=== PATIENT | male | born 1965 | race Caucasian/White ===

== ENCOUNTER 2018-03-16 06:21 | Inpatient (IN) ==
[2018-03-16] MEDS ORDERED: Albuterol 2.5 MG/3 ML NEBULIZER IH ONE (06:47)
[2018-03-16] MEDS ORDERED: CeFAZolin Syr 3,000MG/30 ML 3,000 MG/30 ML SYRINGE IVPB ONE (06:47)
[2018-03-16] MEDS ORDERED: Ringers Solution, Lactated 1,000 ML IVC SCH ×2 (07:00→11:45)
[2018-03-16] MEDS ORDERED: Lidocaine -MPF 4% 5 ML AMPUL ONE (07:56)
[2018-03-16] MEDS ORDERED: Ondansetron 4 MG/2 ML VIAL ONE (07:58)
[2018-03-16] MEDS ORDERED: Neostigmine Methylsulfate 3 MG/3 ML SYRINGE ONE (07:58)
[2018-03-16] MEDS ORDERED: *HR* FentaNYL (PF) 100 MCG/2 ML VIAL ONE ×2 (07:58→09:03)
[2018-03-16] MEDS ORDERED: *HR* Midazolam HCl 2 MG/2 ML VIAL ONE (07:58)
[2018-03-16] MEDS ORDERED: Lidocaine -MPF 2% 2 ML VIAL ONE (07:58)
[2018-03-16] MEDS ORDERED: *HR* Succinylcholine 200 MG/10 ML VIAL IVP ONE (07:58)
[2018-03-16] MEDS ORDERED: Dexamethasone 4 MG/ML VIAL ONE ×2 (07:58→10:40)
[2018-03-16] MEDS ORDERED: *HR* Rocuronium Bromide 50 MG/5 ML VIAL ONE (07:58)
[2018-03-16] MEDS ORDERED: *HR* Propofol 200 MG/20 ML VIAL IVP ONE (07:58)
--- NOTE | 2018-03-16 07:58 | History & Physical Report ---
Date of Encounter: 03/16/18 Time of Encounter: 07:50 24 Hour HP Update - Instructions Instructions: If the History and Physical is less than 30 days old and was completed prior to A.M. admission and or procedure and has NOT been updated on calendar day of procedure please complete this update prior to performing procedure. - Update Patient reports changes in Medical Condition: No Changes in examination, assessment, or condition: No Changes in Medication: No Preop tests/diagnostics Reviewed: Yes Surgery Remains Indicated: Yes Consent for Planned Operative Procedure(s) Verified: Yes - Pre-Operative Checklist Preoperative Checklist Indicated: Yes Prophylactic Antibiotic Ordered: Yes Home Medications Include Beta Doris: No Is VTE Prophylaxis Indicated?: Yes
[2018-03-16] MEDS ORDERED: Famotidine 20 MG/2 ML VIAL IVP ONE (08:13)
[2018-03-16] MEDS ORDERED: Acetaminophen IV 1,000 MG/100 ML INFUS..BTL IVPB ONE (08:13)
--- NOTE | 2018-03-16 08:17 | Anesthesia Evaluation PreOp ---
Date of Encounter: 03/16/18 Time of Encounter: 08:15 - Past History Planned Operation: open paraesophageal hernia with umbilical hernia Cardiac History: HTN Pulmonary History: COPD [employer] History: Other (Schizophrenia, PTSD, anxiety,depression) Other Medical History: Other Anesthesia History: No Prior Anesthetic Complications, Past Anesthesia Alcohol Use: none Drug use: none Medications and Allergies Haloperidol Decanoate [Haldol Decanoate 100] 200 mg IM QMONTH 08/16/15 [History] Omeprazole [PriLOSEC] 20 mg PO BID 08/16/15 [History] diazePAM [Valium] 10 mg PO BID 08/16/15 [History] Albuterol Sulfate [Proair Hfa] 1 puff IH PRN PRN 03/16/18 [History] Buspirone HCl [Buspar] 10 mg PO TID 03/16/18 [History] Calcium Carbonate/Vitamin D3 [Calcium 250+D Tablet] 1 each PO DAILY 03/16/18 [ History] Cetirizine HCl [Zyrtec] 10 mg PO DAILY 03/16/18 [History] Gabapentin [Neurontin] 300 mg PO DAILY 03/16/18 [History] [place]-3 Fatty Acids [Fish Oil] 300 mg PO DAILY 03/16/18 [History] Tiotropium [Spiriva] 18 mcg IH DAILY 03/16/18 [History] 3 Allergy/AdvReac Type Severity Reaction Status Date / Time acetaminophen [From NyQuil] Allergy Hives Verified 03/10/18 08:50 dextromethorphan Allergy Hives Verified 03/10/18 08:50 [From NyQuil] doxylamine [From NyQuil] Allergy Hives Verified 03/10/18 08:50 naproxen [From Aleve] Allergy Hives Verified 03/10/18 08:50 pseudoephedrine [From NyQuil] Allergy Hives Verified 03/10/18 08:50 Methadone AdvReac Nausea Verified 03/10/18 08:50 morphine AdvReac Confusion Verified 03/10/18 08:50 quetiapine [From Seroquel] AdvReac Shakiness Verified 03/10/18 08:50 - Meds/Allergy Pre-op Review Medications Reviewed: Yes Allergies Reviewed: Yes Beta Blockers on Current Med List: No Anesthesia Results - Labs Laboratory Tests 03/10/18 08:55 WBC 5.9 Hgb 14.4 Hct 44.4 Plt Count 324 - Imaging EKG: report reviewed, image reviewed Anesthesia Exam Vital Signs/O2 Sat/Glucose, Most Recent Temp Pulse Resp BP Pulse Ox 97.6 F 56 18 106/74 95 03/16/18 06:52 03/16/18 06:52 03/16/18 06:52 03/16/18 06:52 03/16/18 06:52 Height: 1.83 m Weight: 131 kg NPO (# of Hours): > 8 hr - HEENT Pupil (Motor): Pupils equal Mallampati: III Teeth: Normal - [employer] LOC: Oriented [employer] Motor: Normal RUE, Normal LUE, Normal RLE, Normal LLE, Normal Face [employer] Sensory: Normal: RUE, LUE, RLE, LLE, Face - Cardiac Rhythm: Regular Murmur: None - Pulmonary Breath Sounds: bilateral Clear Respiratory Effort: Symmetrical Anesthesia Assess/Plan ASA Score: 3 Modified [place] Scale for Level of Consciousness: Cooperative, oriented, and tranquil Anesthetic Plan: General Monitoring Plan: Standard Monitors Recovery Plan: PACU
[2018-03-16] MEDS ORDERED: cefOXitin 1,000 MG, Sodium Chloride IRRigation 1,000 ML IR ONE (08:30)
[2018-03-16] MEDS ORDERED: CefOXitin 1,000 MG VIAL ONE (08:44)
[2018-03-16] MEDS ORDERED: *HR* HYDROmorphone 2 MG/ML SYRINGE ONE (09:38)
[2018-03-16] MEDS ORDERED: ROPIVACAINE HCL/PF 0.5% 30 ML VIAL ONE (10:26)
--- NOTE | 2018-03-16 11:18 | Operative Note ---
Date of procedure: 03/16/18 Pre-op diagnosis: Paraesophageal hernia Post-op diagnosis: same Procedure: #1 repair of paraesophageal hernia #2 anterior gastropexy #3 repair of umbilical hernia Anesthesia: MAVREICKA Surgeon: Mikhail Chiu Was there an bookkeeper assistant present: Yes Packaging Machine Supplies Distributor: Surjit Hahn Estimated blood loss (cc): 50 Specimen: none Condition: stable Disposition: PACU Procedure in Detail: After informed consent the patients taking major operating suite placed supine position given adequate general endotracheal anesthesia. Dr. Surjit Hahn was first Asst. and was present throughout the entire case. His presence was necessary secondary to complexity of intrathoracic dissection and risk of high blood loss. Dr. Underwood is dictating and assistance note Timeout was taken and patient was identified I made a vertical midline incision the upper abdomen. The patient had a umbilical hernia. I also dissected through the umbilical hernia we will repair this primarily at the end of the case. 50% the stomach was in the chest. I initially tried to pull the stomach down out of the chest but there was a good deal of resistance. I then mobilize the triangular ligament mobilizing the lateral segment of left lobe of liver this was rotated downward and to the right. Once this was done I could see that there are multiple layers of hernia sac and scar involving the portion of the stomach across the diaphragm and the intrathoracic portion. I carefully divided these layers of hernia sac and adhesion layer by layer using a lighted 56-[place] bougie to identify the esophagus. I eventually divided the lesser omentum and all the anterior attachments. This allowed me to have access to the left side of the herniation. Once I started to reduce the left side of the herniation it was noted that there were extensive peritoneal hernia sac attachments to the spleen and all the way down the greater curvature the stomach. This took a great deal of time to dissected free area at the end of the dissection I had the cardia completely mobilized and the short gastrics divided. There is been enormous amount of tissue surrounding the hernia sacs attached to the lesser curvature in the anterior portion the stomach, however, all attachments to the mediastinum had been severed. This allowed me to identify a large hiatal hernia. The stomach was retracted to the left and the gastroesophageal junction was surrounded with a Imogene. I then performed hiatal hernia repair with 5 stitches of 2-0 Ethibond with pledgets. This given excellent technical result. The cardia of the stomach had been extensively dissected and the patient was not complaining of gastroesophageal reflux disease. For these reasons in addition to the presence of his schizophrenia I decided not to do Rubén fundoplication but to perform anterior gastropexy. Using H stitches of 2-0 silk I sutured the cardia of the stomach into a position on the diaphragm that was anatomic and would not allow the stomach to herniate back into the chest. This gave an excellent technical result. The stomach was angulated and scarred to the retroperitoneum. I then dissected along the left side of the stomach into the lesser sac freeing all of these adhesions to allow the stomach to fall into normal anatomic position. This gave an excellent technical result. I then closed the midline with looped 0 PDS including the umbilical hernia tissue. This gave an excellent technical result. Dr. Underwood was present throughout the entire gastric dissection and gastropexy. She tolerated the procedure well
[2018-03-16] MEDS ORDERED: *HR* Labetalol 20 MG/4 ML SYRINGE IVP PRN (11:39)
[2018-03-16] MEDS ORDERED: *HR* HYDROmorphone (PF) 1 MG/ML SYRINGE IVP PRN (11:39)
[2018-03-16] MEDS ORDERED: Ondansetron 4 MG/2 ML VIAL IVP ONE (11:39)
[2018-03-16] MEDS ORDERED: *HR* OxyCODONE Immed Rel 5 MG TABLET PO PRN (11:39)
--- NOTE | 2018-03-16 11:44 | Anesthesia Procedures ---
Date of Encounter: 03/16/18 Time of Encounter: 11:20 Procedures: Anesthesia - Nerve Block Procedure Date: 03/16/18 Time: 11:20 Allergies/Adv Reactions: acetaminophen, dextromethorphan, doxylamine, naproxen, seroquel, morphine Pre-op Diagnosis: paraesophageal hernia Surgical Procedure: Open paraesophageal hernia repair Checklist: Correct Patient Identifier, Correct procedure, History checked Blood Thinner: No Monitor Applied: EKG, BP, Pulse Oximetry Supplemental Oxygen via Nasal Cannula (L/min): 0 (intubated and sedated) Indication: Post Op Analgesia Pre-op Neuro Deficits: No Block Type: Other (bilateral tap blocks, bilateral subcostal blocks) Sterile Technique: Yes Ultrasound used: Yes Anatomy identified: Yes Visual spread of Local: Yes Blood on Needle Aspiration: No Smooth Injection of Local: Yes Pain with Injection of Local: No (intubated and sedated) Prep: Chlorhexadine Needle: 22 x 50 mm Stimuplex, 21 x 100 mm Stimuplex Local: Ropivacaine (0.25% with decadron 16mg total) Volume (cc): 80ml 0.25% ropivicaine Number of Attempts: 1 Complications: None/effective block
--- NOTE | 2018-03-16 12:20 | Anesthesia Evaluation Post Op ---
Date of Encounter: 03/16/18 Time of Encounter: 12:19 - Vital Signs Vital Signs: Vital Signs/O2 Sat/Glucose, Most Recent Temp Pulse Resp BP Pulse Ox 98.0 F 76 16 133/93 93 03/16/18 12:02 03/16/18 12:12 03/16/18 12:12 03/16/18 12:12 03/16/18 12:12 - Lungs Lungs: Clear Ascult./Percussion - Airway Airway: Non-obstructed - Cardiovascular Regular Rate - Mental Status Mental Status: Alert & Oriented, Answers Appropriately - Pain Pain Scale: 0 - Nausea Vomiting Nausea Vomiting: Not Present - Hydration Hydration: NPO - Discharge PostOp Status: Transfer Patient to floor
[2018-03-16] MEDS ORDERED: *HR* Metoprolol 5 MG/5 ML VIAL IVP PRN (12:49)
[2018-03-16] MEDS: Ringers Solution, Lactated 1,000 ML IVC SCH (14:15)
[2018-03-16] MEDS ORDERED: *HR* Heparin 5,000 UNIT/ML VIAL SQ SCH (18:00)
[2018-03-16] MEDS: diazePAM 10 MG TABLET PO SCH (20:06)
[2018-03-16] MEDS: OXYCODONE Oral CONC 10 MG/0.5 ML ORAL.SYG SL PRN (22:25)
[2018-03-17] MEDS: *HR* OxyCODONE/APAP 5/325 TABLET PO PRN ×2 (00:46→10:07)
[2018-03-17] MEDS: Ringers Solution, Lactated 1,000 ML IVC SCH (07:13)
[2018-03-17] MEDS: OXYCODONE Oral CONC 10 MG/0.5 ML ORAL.SYG SL PRN ×2 (07:14→13:34)
[2018-03-17] MEDS: diazePAM 10 MG TABLET PO SCH (07:15)
[2018-03-17] MEDS ORDERED: Gabapentin 300 MG CAPSULE PO SCH (09:00)
[2018-03-17] MEDS ORDERED: Pantoprazole 40 MG VIAL IVP SCH (09:00)
[2018-03-17] MEDS ORDERED: Tiotropium 18 MCG inhalation IH SCH (10:15)
[2018-03-17 10:55] VITALS: BP 114/83
--- NOTE | 2018-03-17 11:10 | Discharge Summary ---
<Nubia Forbes - Last Filed: 03/17/18 12:40> Orders not resulted at time of discharge: Pending orders 03/16/18 09:28 US anesthesia pain block [US] Routine Date of Encounter: 03/17/18 Time of Encounter: 12:30 - Discharge Diagnosis (1) Paraesophageal hernia Priority: Primary Status: Resolved (2) Schizophrenia Priority: Secondary Status: Chronic Qualifiers: Schizophrenia type: unspecified Qualified Code(s): F20.9 - Schizophrenia, unspecified (3) COPD (chronic obstructive pulmonary disease) Priority: Secondary Status: Chronic Qualifiers: COPD type: unspecified COPD Qualified Code(s): J44.9 - Chronic obstructive pulmonary disease, unspecified General Surgery Exam Initial Vital Signs Temp Pulse Resp BP Pulse Ox 97.6 F 56 18 106/74 95 03/16/18 06:52 03/16/18 06:52 03/16/18 06:52 03/16/18 06:52 03/16/18 06:52 - General physical appearance well developed, well nourished, no distress - Eyes normal ocular movement - ENT normal mucosa, atraumatic, normocephalic - Neck trachea midline - Respiratory normal respiratory effort, clear to auscultation - Cardiovascular Cardiovascular exam: Present: RRR - Abdomen Abdomen general surgery: Present: bowel sounds present, soft, tender (Expected postoperative tenderness) - Incision Incision: Present: clean and dry, intact - Integumentary Integumentary general surgery: Present: warm and dry - Neurologic Present: CN 2-12 grossly intact - Psychiatric Psychiatric general surgery: Present: A&Ox3 - Hospital Course Hospital course: Mr. Renteria is a 52 year old male with a history of a paraesophageal hernia. He is postop day #1 from a repair of a paraesophageal hernia, anterior gastropexy, umbilical hernia repair with Dr. Chiu. On postoperative day #1, the patient tolerating liquids without nausea or vomiting. His vital signs are stable and he is afebrile. His postoperative pain is well-controlled. He is voiding and ambulating without difficulty. We will begin discharge planning to home. The patient be given a soft diet for 1 week and then advance to regular as tolerated. He will follow-up in the office in the next 10-14 days. - Time Spent with Patient Total time spent providing and/or coordinating discharge services: Less than 30 minutes - Discharge Medications Prescriptions: OxyCODONE/APAP 5/325 [Percocet 5/325 MG] 1 each PO Q4HR PRN 5 Days #20 tablet PRN Reason: Pain (1-5) Docusate [Colace] 100 mg PO BID #30 capsule Ibuprofen [Ibu] 800 mg PO TID #40 tablet Home Medications: Haloperidol Decanoate [Haldol Decanoate 100] 200 mg IM QMONTH 08/16/15 [History] diazePAM [Valium] 10 mg PO BID 08/16/15 [History] Albuterol Sulfate [Proair Hfa] 2 puff IH Q6H PRN 03/16/18 [History] Buspirone HCl [Buspar] 10 mg PO TID 03/16/18 [History] Calcium Carbonate/Vitamin D3 [Calcium 250+D Tablet] 1 each PO DAILY 03/16/18 [ History] Cetirizine HCl [Zyrtec] 10 mg PO DAILY 03/16/18 [History] Gabapentin [Neurontin] 300 mg PO DAILY 03/16/18 [History] [place]-3 Fatty Acids [Fish Oil] 300 mg PO DAILY 03/16/18 [History] Tiotropium [Spiriva] 18 mcg IH DAILY 03/16/18 [History] Docusate [Colace] 100 mg PO BID #30 capsule 03/17/18 [Rx] Gabapentin [Neurontin] 800 mg PO TID 03/17/18 [History] Ibuprofen [Ibu] 800 mg PO TID #40 tablet 03/17/18 [Rx] Omeprazole [PriLOSEC] 40 mg PO BID 03/17/18 [History] OxyCODONE/APAP 5/325 [Percocet 5/325 MG] 1 each PO Q4HR PRN 5 Days #20 tablet [Rx] Allergies/Adverse Reactions: 3 Allergy/AdvReac Type Severity Reaction Status Date / Time acetaminophen [From NyQuil] Allergy Hives Verified 03/10/18 08:50 dextromethorphan Allergy Hives Verified 03/10/18 08:50 [From NyQuil] doxylamine [From NyQuil] Allergy Hives Verified 03/10/18 08:50 naproxen [From Aleve] Allergy Hives Verified 03/10/18 08:50 pseudoephedrine [From NyQuil] Allergy Hives Verified 03/10/18 08:50 Methadone AdvReac Nausea Verified 03/10/18 08:50 morphine AdvReac Confusion Verified 03/10/18 08:50 quetiapine [From Seroquel] AdvReac Shakiness Verified 03/10/18 08:50 Date of admission: 03/16/18 12:45 Primary care physician: Austin Kothari MD Consults: 03/16/18 12:49 Consult to Professor Sculpture [CONS] Routine Reason for SW Consult: assistance with care of relatives 03/16/18 13:04 Consult to Professor Sculpture [CONS] Routine Reason for SW Consult: copd Discharging clinician: Mikhail Chiu (Jordyn Forbes) Anticipated date of discharge: 03/17/18 - Patient Status Disposition: Home Health Service Condition: Fair Functional capacity at discharge: independent ambulation Overall status at discharge: patient is progressing back to baseline - Discharge Instructions Follow Up With: Nubia Forbes CNP [Advanced Practice Nurse] - 03/30/18 9:00 am Austin Kothari MD [Primary Care Provider] - Additional Instructions: General Surgical Discharge Instructions 1. No pushing, pulling, or lifting greater than 15 lbs for 6 weeks 2. You may shower beginning today, but no tub baths, soaking, or swimming for 2 weeks. 3. You may resume driving when you are off narcotics and are safe to react in a car. 4. Take ibuprofen every 8 hours for discomfort. If this does not relieve discomfort, you may take the as needed Percocet. Take narcotics as directed. Do not take more narcotics then directed and do not share your narcotics with any other person. Do not drink alcohol while on narcotics. 5. Take stool softeners (Colace) or a water based laxative (Miralax) while taking narcotics. You may hold for loose stools. 6. Report any fevers greater than 100.5F, increase abdominal discomfort, drainage that looks like pus, increased redness or pain at the surgical site, or any vomiting. 7. Report any pain in the calves, shortness of breath, or rapid heartbeat. 8. Follow-up in the office as directed. - Diet and Activity Activity: other (See additional instructions above) Diet: other (soft, chopped meat diet for 1 week and then advance to regular as tolerated) - Attending Attestation For this encounter, I have reviewed the HARDBOARD GRINDER or PA documentation, treatment plan, and medical decision making; and I have had face to face time with this patient. <Mikhail Chiu - Last Filed: 03/20/18 09:21> Orders not resulted at time of discharge: Pending orders 03/16/18 09:28 US anesthesia pain block [US] Routine Date of Encounter: 03/20/18 General Surgery Exam Initial Vital Signs Temp Pulse Resp BP Pulse Ox 97.6 F 56 18 106/74 95 03/16/18 06:52 03/16/18 06:52 03/16/18 06:52 03/16/18 06:52 03/16/18 06:52 - Hospital Course Hospital course: Mr. Renteria is a 52 year old male - Time Spent with Patient Total time spent providing and/or coordinating discharge services: Date of admission: 03/16/18 12:45 Primary care physician: Austin Kothari MD Consults: 03/16/18 12:49 Consult to Professor Sculpture [CONS] Routine Reason for SW Consult: assistance with care of relatives 03/16/18 13:04 Consult to Professor Sculpture [CONS] Routine Reason for SW Consult: copd - Attending Attestation I have personally performed a face to face evaluation on this patient. I have reviewed and agree with the care plan. History and Exam by me shows: The patient is seen and evaluated on morning rounds with the clinical nurse practitioner. The patient is tolerating clear liquid diet and has reasonable pain control. He is highly motivated to go home today and I think this is reasonable. Discharge today follow-up one week. Clear liquid diet. Mikhail Chiu MD FACS
--- NOTE | 2018-03-17 13:03 | Physician Discharge Referral ---
Home Health/Hosp Referral Info Transfer to: Home Health Attending Provider: Dr. Mikhail Chiu Provider in Charge Post Discharge: Other (Dr. Mikhail Chiu and PCP) - Diagnosis (1) Paraesophageal hernia Priority: Primary Status: Resolved (2) Schizophrenia Priority: Secondary Status: Chronic (3) COPD (chronic obstructive pulmonary disease) Priority: Secondary Status: Chronic - Respiratory Orders None - Dressing/Wound Care Site: Midline incision Type of Dressing/Treatments w/Frequency: Cleanse midline was soap and water and pat dry, may cover with dry dressing and taped to secure daily - Diet/Nutrition Diet/Nutrition Orders: Mechanical Soft (for 1 week and then advance to regular diet as tolerated) - Activity Activity Orders: Up ad matt, Ambulate - Services Needed Following services are medically necessary services: Nursing - Transfer Medications Prescriptions: OxyCODONE/APAP 5/325 [Percocet 5/325 MG] 1 each PO Q4HR PRN 5 Days #20 tablet PRN Reason: Pain (1-5) Docusate [Colace] 100 mg PO BID #30 capsule Ibuprofen [Ibu] 800 mg PO TID #40 tablet Home Medications: Haloperidol Decanoate [Haldol Decanoate 100] 200 mg IM QMONTH 08/16/15 [History] diazePAM [Valium] 10 mg PO BID 08/16/15 [History] Albuterol Sulfate [Proair Hfa] 2 puff IH Q6H PRN 03/16/18 [History] Buspirone HCl [Buspar] 10 mg PO TID 03/16/18 [History] Calcium Carbonate/Vitamin D3 [Calcium 250+D Tablet] 1 each PO DAILY 03/16/18 [ History] Cetirizine HCl [Zyrtec] 10 mg PO DAILY 03/16/18 [History] Gabapentin [Neurontin] 300 mg PO DAILY 03/16/18 [History] [place]-3 Fatty Acids [Fish Oil] 300 mg PO DAILY 03/16/18 [History] Tiotropium [Spiriva] 18 mcg IH DAILY 03/16/18 [History] Docusate [Colace] 100 mg PO BID #30 capsule 03/17/18 [Rx] Gabapentin [Neurontin] 800 mg PO TID 03/17/18 [History] Ibuprofen [Ibu] 800 mg PO TID #40 tablet 03/17/18 [Rx] Omeprazole [PriLOSEC] 40 mg PO BID 03/17/18 [History] OxyCODONE/APAP 5/325 [Percocet 5/325 MG] 1 each PO Q4HR PRN 5 Days #20 tablet [Rx] Allergies/Adverse Reactions: 3 Allergy/AdvReac Type Severity Reaction Status Date / Time acetaminophen [From NyQuil] Allergy Hives Verified 03/10/18 08:50 dextromethorphan Allergy Hives Verified 03/10/18 08:50 [From NyQuil] doxylamine [From NyQuil] Allergy Hives Verified 03/10/18 08:50 naproxen [From Aleve] Allergy Hives Verified 03/10/18 08:50 pseudoephedrine [From NyQuil] Allergy Hives Verified 03/10/18 08:50 Methadone AdvReac Nausea Verified 03/10/18 08:50 morphine AdvReac Confusion Verified 03/10/18 08:50 quetiapine [From Seroquel] AdvReac Shakiness Verified 03/10/18 08:50 Certification: Further, I certify that my clinical findings support that this patient is homebound (i.e. absences from home require considerable and taxing effort and are for medical reasons or sikh services or infrequently or short duration when for other reasons) because: Homebound Reason: Patient requires assistance of a person or device to safely leave home, Post-surgery restriction and or conditions limit ability to leave home Attestation: My signature below is to certify that this patient is under my care and that I, or nurse practitioner, or a physician's orthotic assistant working with me, has a face-to -face encounter with this patient.
--- NOTE | 2018-03-18 21:24 | Operative Note ---
Date of procedure: 03/16/18 Pre-op diagnosis: paraesophageal hernia Post-op diagnosis: same Procedure: open repair of hiatal hernia anterior gastropexy Implants: none Complications: none Anesthesia: GETA Surgeon: Mikhail Chiu Was there an trading assistant present: Yes Airport Screener: Surjit Hahn Estimated blood loss (cc): 50 Specimen: none Condition: stable Disposition: PACU Procedure in Detail: The patient was brought into the operating room suite. He was placed in the supine position. Mechanical DVT prophylaxis was placed. The patient underwent smooth induction of anesthesia. Preoperative antibiotics were given. The patient was prepped and draped in the usual fashion. A timeout was held identifying correct patient, pathology , procedure and physicians. A midline incision was created. In the process of entering into the abdomen, multiple angiolipomas were encountered, excised, and sent to pathology. We then entered into the abdomen. We were quickly able to assess that about half of the stomach was into the chest. There was a lot of resistance with first attempt at reduction. We then began mobilizing the triangular limagent to mobilize the left lateral segment of the liver. Once this we began dissecting and dividing the layers of the hernia sac, carefully and methodically. We then inserted the lit bougie to identify the esophagus to help prevent injury. We were able to identify the right marianna. We then began focusing on the left side by dividing the omental and anterior attachments. We saw that there were extensive attachments to the hernia sac on this side as well that included attachments to the spleen. We spent a signfiicant amount of time dividing these attachments and mobilizing the greater curve. At this point we had cleared the left side, identified both marianna and were able to place a david drain to help with esophageal retraction. The hiatal hernia was closed with interrupted, pledgetted 2-0 ethibond sutures. Intraoperatively the decision was made to not perform a fundoplication due to the patient's underlying comorbidity and history of not having reflux. A gastropexy was decided upon instead. Using H stitches of 2- 0 silk the cardia of the stomach was sutured into a position on the diaphragm that was anatomic and would not allow the stomach to herniate back into the chest. Dr. Chiu completed the rest of the case. I was included as an assistance due to the extent of dissection and of high blood loss.
== END 2018-03-17 14:23 | disposition home health service (06) | DRG 328 ==
LOC: SAMDAY 06:21 → 3ANU 12:45
PROVIDERS: ADMIT Surgery; ATTEND Surgery